=== PATIENT | female | born 1955 | race Caucasian/White ===

== ENCOUNTER → 2017-08-13 | Outpatient (CLI) | payer BC | END | disposition home or self-care (01) | LOC: ECHO 10:50 | DX: I48.0 Paroxysmal atrial fibrillation (principal); I34.0 Nonrheumatic mitral (valve) insufficiency | CPT/HCPCS: 93306 ==

== ENCOUNTER → 2018-08-09 | Outpatient (CLI) | payer BC ==
[2015-06-24 15:09] VITALS: BP 142/76
[~2018-08-09] MED LIST: APIX5TAB PO; ATEN25TA PO; ATOR40TA59 PO; DILT120C85 PO; FLEC50TA PO; LORA10TA3 PO; LOSA-73 PO; MAGN400T22 PO; METF500T9 PO; MULT1TAB52 PO
--- NOTE | 2018-08-09 10:24 | CARD ---
MR#: [id number] Date of Study: 08/09/2018 Ordering Physician: JONNY COLEMAN, Referring Physician: JONNY COLEMAN Tech: Melita Almonte RDCS APPROVED REPORT EXAM: Two-dimensional and M-mode echocardiogram with Doppler and color Doppler. Other Information Quality : Fair Technically limited study due to body habitus. INDICATION Paraoxysmal Atrial Fibrillation 2D DIMENSIONS RVDd2.5 (2.9-3.5cm)Left Atrium(2D)3.6 (1.6-4.0cm) IVSd0.8 (0.7-1.1cm)Aortic Root(2D)2.3 (2.0-3.7cm) LVDd5.5 (3.9-5.9cm)LVOT Diameter1.9 (1.8-2.4cm) PWd0.9 (0.7-1.1cm)LVDs4.5 (2.5-4.0cm) FS (%) 16.7 %SV50.0 ml LVEF(%)50.0 (>50%) Aortic Valve AoV Peak Jamie.150.3cm/sAoV VTI30.3cm AO Peak GR.9.0mmHgLVOT Peak Jamie.119.3cm/s LVOT VTI 24.35cmAO Mean GR.5mmHg DANITZA (VMAX)2.82ts7GKT (VTI)2.29cm2 Mitral Valve MV E Obaoghqn49.8cm/sMV DECEL UZEF387hx MV A Obapcvqx75.4cm/sMV IFM53sl E/A Ratio1.6MVA (PHT)3.19cm2 TDI E/Lateral E'8.2E/Medial E'11.5 Tricuspid Valve TR P. Pbcmhedt565tn/sRAP FAANNFQU9rvKs TR Peak Gr.00uuUgMHYQ63hvVg Pulmonary Vein S1 Ppifacvc84.4cm/sD2 Jcpbxrrx01.2cm/s LEFT VENTRICLE The left ventricle is normal size. There is normal left ventricular wall thickness. Left ventricle sy stolic function is low normal. The Ejection Fraction is 50-55%. There is normal LV segmental wall mot ion. Transmitral Doppler flow pattern is Grade II-pseudonormal filling dynamics. RIGHT VENTRICLE The right ventricle is normal size. The right ventricular systolic function is normal. ATRIA The left atrium size is normal. The right atrium size is normal. The interatrial septum is intact wit h no evidence for an atrial septal defect or patent foramen ovale as noted on 2-D or Doppler imaging. AORTIC VALVE The aortic valve is not well visualized but appears to be functioning normally by Doppler interrogati on. Doppler and Color Flow revealed no significant aortic regurgitation. There is no significant aort ic valvular stenosis. MITRAL VALVE The mitral valve is normal in structure and function. There is no evidence of mitral valve prolapse. There is no mitral valve stenosis. Doppler and Color-flow revealed trace mitral regurgitation. TRICUSPID VALVE The tricuspid valve is normal in structure and function. Doppler and Color Flow revealed physiologica l tricuspid regurgitation. The PA pressure was estimated at 19 mmHg. There is no tricuspid valve sten osis. PULMONIC VALVE The pulmonic valve is not well visualized. Doppler and Color Flow revealed no pulmonic valvular regur gitation. There is no pulmonic valvular stenosis. GREAT VESSELS The aortic root is normal in size. The ascending aorta is not well seen. The IVC is normal in size an d collapses >50% with inspiration. PERICARDIAL EFFUSION There is no evidence of significant pericardial effusion. Critical Notification Critical Value: No <Conclusion> Left ventricle systolic function is low normal. The Ejection Fraction is 50-55%. There is normal LV segmental wall motion. Signed by : Schuyler Hart, Electronically Approved : 08/09/2018 10:24:33
== END | disposition home or self-care (01) ==
LOC: ECHO 08:50
PROVIDERS: ATTEND Internal Medicine Cardiovascular Disease
DX: I07.1 Rheumatic tricuspid insufficiency (principal); I48.0 Paroxysmal atrial fibrillation
CPT/HCPCS: 93306

== ENCOUNTER → 2019-02-17 | Outpatient (CLI) | payer MEDICARE, BC ==
[2015-06-24 15:09] VITALS: BP 142/76
[~2019-02-17] MED LIST changes: -DILT120C85 PO; +DILT120C99 PO; +METF500T11 PO; -METF500T9 PO; +REGADENOSON 0.4 MG/5 ML DISP.SYRIN. IV ONE
--- NOTE | 2019-02-17 11:41 | RAD ---
MR#: [id number] Date of Study: 02/17/2019 Ordering Physician: JONNY COLEMAN Referring Physician: RAJENDRA BONDS Tech: TA Muñoz APPROVED REPORT Test Type: Pharmacological Stress Nurse/Tech: Jennifer Meade RN Test Indications: History of A-fib Cardiac History: Hypertension, Diabetes,Cecal CA Medications: See Electronic Medical Record Medical History: See Electronic Medical Record Resting ECG: SR Resting Heart Rate: 61 bpm Resting Blood Pressure: 162/50mmHg Pretest Chest Pain: No chest pain Nurse/Tech Notes S1,S2 but Irregular, lungs clear to ascultation. Consent: The procedure was explained to the patient in lay terms. Informed consent was witnessed. Marin eout was entered into [employer]. History and Stress Test performed by TA Muñoz Pharm. Details Pharmacologic stress testing was performed using 0.4mg per 5ml of regadenoson given intravenously ove r 7-10 seconds. Stress Symptoms No chest pain or symptoms. POST EXERCISE Reason for Termination: Infusion complete Target HR: No Max HR: 92 bpm Max Blood Pressure: 182/50mmHg Blood Pressure response to exercise: Normal blood pressure response during stress. Heart Rate response to exercise: WNL Chest Pain: No. Arrhythmia: No. ST Change: Yes. deeper ST depression in leads v3-v6. aVR,aVL, aVF have ST changes from baseline as we ll. INTERPRETATION Stress EKG Conclusion: Baseline EKG showed sinus rhythm with inferolateral ST depressions that get de eper with T wave inversions at peak stress suspicious for ischemia. No arrhythmias. Imaging Protocol IMAGE PROTOCOL: Rest Tc-99m/stress Tc-99m 1 day Rest: Stress: Viability: Radiopharm.Tc99m ReixxzghtXo43z Sestamibi Osjz24bNz 33mCi Duration 15min. 10min. Img Date 02/17/2019 02/17/2019 Rest Admin Site:IV - Right AntecubitalAdministrator:TA Muñoz Stress Admin Site: IV - Right AntecubitalAdministrator: Kel Chen, (R)(N) STRESS DATA End Diast. Vol.83.0mlAv. Heart Rate59.0bpm End Syst. Vol.22.0mlCO Index BSA0.0L/min Myocardial Uaru260.0gEject. Ctfkzwpg02.0% Stress Rates Pk. Fill Rate3.23EDV/secLVtime Pk. Fill 154.54msec Pk. Empty Rate3.63ESV/secLVtime Pk. Gumvx456.23msec 1/3 Pk. Fill1.68EDV/sec Stress Scores Regional WT1.00Summed WT8.00 Regional WM0.00Summed WM1.00 Study quality was good. Left Ventricular size was Normal at Rest and Stress. Lung uptake was . Left Ventricular ejection fraction is 73%. The rest and stress images show normal perfusion, normal contraction and thickening. LV Perf. Quant 17 Seg. SSS1.00 17 Seg. SRS0.00 17 Seg. SDS1.00 Stress Defect Extent (% LAD)0.00Rest Defect Extent (% LAD)0.00Rev. Defect Extent (% LAD)0.00 Stress Defect Extent (% LCX) 0.00Rest Defect Extent (% LCX)0.00Rev. Defect Extent (% LCX)0.00 Stress Defect Extent (% RCA)0.00Rest Defect Extent (% RCA)0.00Rev. Defect Extent (% RCA)0.00 Stress Defect Extent (% MIRZA)0.00Rest Defect Extent (% MIRZA)0.00Rev. Defect Extent (% MIRZA)0.00 Conclusion 1. Regadenoson cardioisotope stress test showed EKG changes of ischemia but scintigraphic images did not show any evidence of ischemia or infarct. 2. Normal left ventricular systolic function with ejection fraction calculated at 73%. 3. Low risk for cardiac events. Signed by : Jonny Coleman, Electronically Approved : 02/17/2019 11:41:07
== END ==
LOC: NM 07:20
PROVIDERS: ATTEND Internal Medicine Cardiovascular Disease
DX: I48.0 Paroxysmal atrial fibrillation (principal); I10 Essential (primary) hypertension; E78.00 Pure hypercholesterolemia, unspecified; E11.9 Type 2 diabetes mellitus without complications; Z90.710 Acquired absence of both cervix and uterus
CPT/HCPCS: 78452; 93017; A9500; J2785

== ENCOUNTER → 2019-08-24 | Outpatient (CLI) | payer MEDICARE, BC ==
[2015-06-24 15:09] VITALS: BP 142/76
[~2019-08-24] MED LIST changes: +METF-658 PO; -METF500T11 PO; +MULT-445 PO; -MULT1TAB52 PO; -REGADENOSON 0.4 MG/5 ML DISP.SYRIN. IV ONE
--- NOTE | 2019-08-24 09:48 | CARD ---
MR#: [id number] Date of Study: 08/24/2019 Ordering Physician: JONNY COLEMAN, Referring Physician: JONNY COLEMAN Tech: Melita Almonte RDCS APPROVED REPORT EXAM: Two-dimensional and M-mode echocardiogram with Doppler and color Doppler. Other Information Quality : Good Rhythm : Bradycardia INDICATION Atrial Fibrillation 2D DIMENSIONS RVDd2.4 (2.9-3.5cm)Left Atrium(2D)3.0 (1.6-4.0cm) IVSd1.4 (0.7-1.1cm)Aortic Root(2D)2.7 (2.0-3.7cm) LVDd4.3 (3.9-5.9cm)LVOT Diameter2.1 (1.8-2.4cm) PWd1.2 (0.7-1.1cm)LVDs3.3 (2.5-4.0cm) FS (%) 23.7 %SV39.1 ml LVEF(%)55.0 (>50%) Aortic Valve AoV Peak Jamie.134.6cm/sAoV VTI26.5cm AO Peak GR.7.2mmHgLVOT Peak Jamie.133.2cm/s AO Mean GR.4mmHgAVA (VMAX)3.35cm2 DANITZA (VTI)3.50cm2 Mitral Valve MV E Fxopvoav08.1cm/sMV DECEL HNNW699ym MV A Gooxsxxk86.6cm/sE/A Ratio1.6 Pulmonary Vein S1 Qixvsqms92.4cm/sD2 Uilpjhao01.6cm/s LEFT VENTRICLE The left ventricle is normal size. There is mild concentric left ventricular hypertrophy. The left ve ntricular systolic function is normal. The Ejection Fraction is 55%. There is normal LV segmental wal l motion. Transmitral Doppler flow pattern is Grade II-pseudonormal filling dynamics. RIGHT VENTRICLE The right ventricle is normal size. The right ventricular systolic function is normal. ATRIA The left atrium size is normal. The right atrium size is normal. The interatrial septum is intact wit h no evidence for an atrial septal defect or patent foramen ovale as noted on 2-D or Doppler imaging. AORTIC VALVE The aortic valve is not well visualized but appears to be functioning normally by Doppler interrogati on. Doppler and Color Flow revealed no significant aortic regurgitation. There is no significant aort ic valvular stenosis. MITRAL VALVE The mitral valve is calcified but opens well. There is no evidence of mitral valve prolapse. There is no mitral valve stenosis. Doppler and Color-flow revealed trace mitral regurgitation. TRICUSPID VALVE The tricuspid valve is normal in structure and function. Doppler and Color Flow revealed no tricuspid valve regurgitation noted. There is no tricuspid valve stenosis. PULMONIC VALVE The pulmonic valve is not well visualized. Doppler and Color Flow revealed no pulmonic valvular regur gitation. There is no pulmonic valvular stenosis. GREAT VESSELS The aortic root is normal in size. The ascending aorta is not well seen. The IVC is normal in size an d collapses >50% with inspiration. PERICARDIAL EFFUSION There is no evidence of significant pericardial effusion. Critical Notification Critical Value: No <Conclusion> The left ventricular systolic function is normal. The Ejection Fraction is 55%. There is normal LV segmental wall motion. Transmitral Doppler flow pattern is Grade II-pseudonormal filling dynamics. Trace mitral regurgitation. There is no evidence of significant pericardial effusion. Signed by : Jonny Coleman, Electronically Approved : 08/24/2019 09:47:52
== END ==
LOC: ECHO 08:39
PROVIDERS: ATTEND Internal Medicine Cardiovascular Disease
DX: I34.8 Other nonrheumatic mitral valve disorders (principal); I48.0 Paroxysmal atrial fibrillation
CPT/HCPCS: 93306

== ENCOUNTER → 2020-08-22 | Outpatient (CLI) | payer MEDICARE, BC ==
[2015-06-24 15:09] VITALS: BP 142/76
--- NOTE | 2020-08-23 10:11 | CARD ---
MR#: [id number] Date of Study: 08/22/2020 Ordering Physician: JONNY COLEMAN, Referring Physician: JONNY COLEMAN, Tech: Adalgisa Bazzi, [facility] APPROVED REPORT EXAM: Two-dimensional and M-mode echocardiogram with Doppler and color Doppler. Other Information Quality : AverageHR: 59bpm INDICATION Atrial Fibrillation RISK FACTORS Hypertension Hyperlipidemia Diabetes 2D DIMENSIONS RVDd2.6 (2.9-3.5cm)Left Atrium(2D)3.4 (1.6-4.0cm) IVSd0.9 (0.7-1.1cm)Aortic Root(2D)2.9 (2.0-3.7cm) LVDd5.5 (3.9-5.9cm)LVOT Diameter2.0 (1.8-2.4cm) PWd0.8 (0.7-1.1cm)LVDs2.9 (2.5-4.0cm) FS (%) 47.5 %SV115.5 ml Aortic Valve AoV Peak Jamie.141.1cm/sAoV VTI27.8cm AO Peak GR.8.0mmHgLVOT Peak Jamie.110.3cm/s LVOT VTI 24.09cmAO Mean GR.4mmHg DANITZA (VMAX)1.13fh6EDY (VTI)2.66cm2 Mitral Valve MV E Azastszw55.4cm/sMV DECEL ZVDY609wh MV A Wipjwtfp26.5cm/sMV WMZ14ic E/A Ratio1.5MVA (PHT)2.95cm2 TDI E/Lateral E'7.3E/Medial E'7.7 Pulmonary Valve PV Peak Kltayslv86.4cm/sPV Peak Grad.3mmHg Tricuspid Valve TR P. Wozqxswl315hh/sRAP UMGQVYVA4vtEt TR Peak Gr.99cjAfADNQ20ogMs Pulmonary Vein S1 Pwzzgosv87.5cm/sD2 Dfppepss56.6cm/s PVa uguyfzmw473spcd LEFT VENTRICLE The left ventricle is normal size. There is normal left ventricular wall thickness. The left ventricu lar systolic function is normal. The Ejection Fraction is 55-60%. There is normal LV segmental wall m otion. The left ventricular diastolic function and filling is normal for age. RIGHT VENTRICLE The right ventricle is normal size. There is normal right ventricular wall thickness. The right ventr icular systolic function is normal. ATRIA The left atrium size is normal. The right atrium size is normal. The interatrial septum is intact wit h no evidence for an atrial septal defect or patent foramen ovale as noted on 2-D or Doppler imaging. AORTIC VALVE The aortic valve is normal in structure and function. Doppler and Color Flow revealed no significant aortic regurgitation. There is no significant aortic valvular stenosis. Calculated aortic valve area is 2.88 cm2 with maximum pressure gradient of 9 mmHg and mean pressure gradient of 5 mmHg. MITRAL VALVE The mitral valve is normal in structure and function. There is no evidence of mitral valve prolapse. There is no mitral valve stenosis. Doppler and Color-flow revealed trace mitral regurgitation. TRICUSPID VALVE The tricuspid valve is normal in structure and function. Doppler and Color Flow revealed trace tricus pid regurgitation with an estimated PAP of 27 mmHg. There is no tricuspid valve stenosis. PULMONIC VALVE The pulmonic valve is not well visualized. Doppler and Color Flow revealed no pulmonic valvular regur gitation. GREAT VESSELS The aortic root is normal in size. The IVC is normal in size and collapses >50% with inspiration. PERICARDIAL EFFUSION There is no evidence of significant pericardial effusion. Critical Notification Critical Value: No <Conclusion> The left ventricle is normal size. The left ventricular systolic function is normal. The Ejection Fraction is 55-60%. Doppler and Color Flow revealed no significant aortic regurgitation. There is no significant aortic valvular stenosis. Doppler and Color-flow revealed trace mitral regurgitation. Doppler and Color Flow revealed trace tricuspid regurgitation with an estimated PAP of 27 mmHg. Signed by : Chon Colon MD Electronically Approved : 08/23/2020 10:10:55
== END ==
LOC: ECHO 07:54
PROVIDERS: ATTEND Internal Medicine Cardiovascular Disease
DX: I48.0 Paroxysmal atrial fibrillation (principal)
CPT/HCPCS: 93306

== ENCOUNTER → 2021-02-19 | Outpatient (CLI) | payer MEDICARE, BC ==
[2015-06-24 15:09] VITALS: BP 142/76
[~2021-02-19] MED LIST changes: +REGADENOSON 0.4 MG/5 ML DISP.SYRIN. IV ONE
--- NOTE | 2021-02-19 12:20 | RAD ---
MR#: [id number] Date of Study: 02/19/2021 Ordering Physician: JONNY COLEMAN, Referring Physician: RAJENDRA BONDS Tech: RT Joss RossiR) (N) APPROVED REPORT Test Type: Pharmacological Stress Nurse/Tech: Jennifer Meade RN Test Indications: paroxysmal A-fib Cardiac History: Hypertension, Diabetes Medications: See Electronic Medical Record Medical History: See Electronic Medical Record Resting ECG: SB Resting Heart Rate: 58 bpm Resting Blood Pressure: 166/67mmHg Pretest Chest Pain: No chest pain Nurse/Tech Notes S1,S2 and lungs clear to auscultation. Consent: The procedure was explained to the patient in lay terms. Informed consent was witnessed. Marin eout was entered into [employer]. History and Stress Test performed by RT Flo (R) (N) Pharm. Details Pharmacologic stress testing was performed using 0.4mg per 5ml of regadenoson given intravenously ove r 7-10 seconds. Stress Symptoms Dyspnea POST EXERCISE Reason for Termination: Infusion complete Target HR: No Max HR: 92 bpm Max Blood Pressure: 152/62mmHg Blood Pressure response to exercise: Normal blood pressure response during stress. Heart Rate response to exercise: WNL Chest Pain: No. Arrhythmia: Yes. PVC ST Change: No. INTERPRETATION Stress EKG Conclusion: Baseline EKG showed sinus rhythm. Non-diagnostic changes at peak stress. No arrhythmias. Imaging Protocol IMAGE PROTOCOL: Rest Tc-99m/stress Tc-99m 1 day Rest: Stress: Viability: Radiopharm.Tc99m OzuzlwvwsEq21f Sestamibi Dose10.2mCi 32mCi Duration 15min. 10min. Img Date 02/19/2021 02/19/2021 Inj-Img Vaqn23ygh. 60min. Rest Admin Site:IV - Right AntecubitalAdministrator:RT Joss RossiR)(N) Stress Admin Site: IV - Right AntecubitalAdministrator: REBECCA Naik, ARRT (R)(N) STRESS DATA End Diast. Vol.76.0mlAv. Heart Rate57.0bpm End Syst. Vol.16.0mlCO Index BSA0.0L/min Myocardial Vuro363.0gEject. Yjrpwugv48.0% Stress Rates Pk. Fill Rate2.59EDV/secLVtime Pk. Fill 257.69msec Pk. Empty Rate4.32ESV/secLVtime Pk. Bynni654.42msec 1/3 Pk. Fill1.37EDV/sec Stress Scores Regional WT2.00Summed WT8.00 Regional WM0.00Summed WM2.00 Study quality was good. Left Ventricular size was Normal at Rest and Stress. Lung uptake was . Left Ventricular ejection fraction is 74%. The rest and stress images show normal perfusion, normal contraction and thickening. LV Perf. Quant 17 Seg. SSS2.00 17 Seg. SRS0.00 17 Seg. SDS2.00 Stress Defect Extent (% LAD)0.00Rest Defect Extent (% LAD)0.00Rev. Defect Extent (% LAD)0.00 Stress Defect Extent (% LCX) 10.00Rest Defect Extent (% LCX)0.00Rev. Defect Extent (% LCX)10.00 Stress Defect Extent (% RCA)0.00Rest Defect Extent (% RCA)0.00Rev. Defect Extent (% RCA)0.00 Stress Defect Extent (% MIRZA)4.30Rest Defect Extent (% MIRZA)0.00Rev. Defect Extent (% MIRZA)3.90 Conclusion 1. Regadenoson cardioisotope stress test did not show any evidence of ischemia or infarct. 2. Normal left ventricular systolic function with ejection fraction calculated at 74%. 3. Low risk for cardiac events. Signed by : Jonny Coleman, Electronically Approved : 02/19/2021 12:20:14
== END ==
LOC: NM 08:02
PROVIDERS: ATTEND Internal Medicine Cardiovascular Disease
DX: I48.0 Paroxysmal atrial fibrillation (principal)
CPT/HCPCS: 78452; 93017; A9500; J2785